=== PATIENT | female | born 1975 | race Caucasian/White ===

== ENCOUNTER 2017-02-23 22:17 | Emergency (ER) | payer BC ==
[2017-02-23] MEDS ORDERED: ONDANSETRON ODT 8 MG TAB SL ONE (22:39)
[2017-02-23] MEDS ORDERED: HYDROmorphone HCL INJ 2 MG/ML VIAL IV ONE (22:39)
[2017-02-23] MEDS ORDERED: SODIUM CHLORIDE 0.9% 1000ML 1,000 ML IVS ONE (22:39)
[2017-02-23] MEDS ORDERED: LIDOCAINE VIS-MYLANTA 30 ML UD PO ONE (22:39)
--- NOTE | 2017-02-23 23:05 | RAD ---
EXAM DESCRIPTION: Abdomen Series CLINICAL HISTORY: 41 years Female ,n/v/left abd and flank pain COMPARISON: None. TECHNIQUE: Frontal view chest x-ray and two views of the abdomen. FINDINGS: Heart size is within normal limits. Right lung appears clear. There is some blunting of the left costo phrenic angle which may reflect small amount of fluid. No free intraperitoneal air. No bowel obstruction. Clips in the gallbladder fossa. Calcifications in both aspects of the pelvis likely phleboliths. There is a linear area of calcification in the right pelvis measuring 1.4 cm. This may represent vascular calcification the possibility of an elongated distal ureteral stone is not excluded. IMPRESSION: Question small left pleural effusion Elongated calcification in the right pelvis. Question vascular calcification. Ureteral calculus not entirely excluded Electronically signed by: Ivette Gabriel 02/23/2017 11:04 PM CDT
[2017-02-24] MEDS ORDERED: ONDANSETRON ODT 8 MG TAB SL ONE (00:35)
[2017-02-24] MEDS ORDERED: SUCRALFATE 1 GM/10 ML 1 GM UD PO ONE (00:35)
[2017-02-24] MEDS ORDERED: SODIUM CHLORIDE 0.9% 1000ML 1,000 ML IVS ONE (00:35)
--- NOTE | 2017-02-24 00:47 | ED.PDOC ---
History of Present Illness - General Chief Complaint: Abdominal Pain Stated Complaint: Left flank and abdominal pain Time Seen by Provider: 02/23/17 22:32 Source: patient Exam Limitations: no limitations - History of Present Illness Initial Comments: the patient is a 41-year-old female presenting to the emergency room secondary to approximately 4 hours of left flank pain that caused nausea and vomiting and then epigastric pains. She has been having a sensation of needing to urinate but unable to do so. No pain with urination. No fever. Pain onset was rapid. No blood or bile in the vomitus. She does feel like she is dehydrated. No syncope or near-syncope. No chest pain.the flank pain was severe. The patient is currently on her period. Timing/Duration: 4-6 hours Severity: severe Improving Factors: nothing Worsening Factors: nothing Associated Symptoms: malaise, nausea/vomiting Allergies/Adverse Reactions: Allergies NO KNOWN ALLERGY Allergy (Verified 02/23/17 22:27) Home Medications: Ambulatory Orders Mvimnpievnudy-Pfzx-Wwlquhkcck [Fioricet] 1 ea PO Q8H PRN #21 tab 02/24/17 Famotidine 20 mg PO DAILY #30 tab 02/24/17 Ondansetron [Zofran Odt] 4 mg PO Q4H PRN #10 tab 02/24/17 Review of Systems - Review of Systems Constitutional: States: malaise EENTM: States: no symptoms reported Respiratory: States: no symptoms reported Cardiology: States: no symptoms reported Gastrointestinal/Abdominal: States: nausea, vomiting Genitourinary: States: pain Musculoskeletal: States: back pain Skin: States: no symptoms reported Neurological: States: no symptoms reported Endocrine: States: no symptoms reported All other Systems: No Change from Baseline Past Medical History (General) - Patient Medical History Hx Seizures: No Hx Stroke: No Hx Dementia: No Hx Asthma: No Hx of COPD: No Hx Cardiac Disorders: No Hx Congestive Heart Failure: No Hx Pacemaker: No Hx Hypertension: No Hx Thyroid Disease: No Hx Diabetes: No Hx Gastroesophageal Reflux: No Hx Renal Disease: No Hx Cancer: No Hx of HIV: No Hx Hepatitis C: No Hx MRSA: No Surgical History: cholecystectomy - Vaccination History Hx Tetanus, Diphtheria Vaccination: No Hx Influenza Vaccination: No Hx Pneumococcal Vaccination: No Immunizations Up to Date: Yes - Social History Hx Tobacco Use: No Hx Alcohol Use: No Hx Substance Use: No - Female History Patient is a Female of Child Bearing Age (10 -59 yrs old): Yes Patient : No Family Medical History - Family History Mother Living Status: Still Living Hx Family Hypertension: Yes Hx Cardiac Disease: Yes - [place] Father Living Status: Still Living Hx Family Hypertension: Yes Hx Family Diabetes: Yes Physical Exam - Physical Exam General Appearance: Alert, Obvious distress Eye Exam: bilateral normal Ears, Nose, Throat: hearing grossly normal, normal ENT inspection, normal pharynx Neck: non-tender, full range of motion, supple Respiratory: chest non-tender, lungs clear, normal breath sounds, no respiratory distress, no accessory muscle use Cardiovascular/Chest: normal peripheral pulses, regular rate, rhythm, no edema Peripheral Pulses: radial,right: 2+, radial,left: 2+, dorsalis pedis,right: 2+, dorsalis pedis,left: 2+ Gastrointestinal/Abdominal: other - epigastric and lower abdominal discomfort palpation. No true rebound or peritoneal signs. Rectal Exam: deferred Back Exam: no vertebral tenderness, CVA tenderness (L) Extremity: normal range of motion, non-tender, normal inspection, no pedal edema , normal capillary refill Neurologic: whizzer II-XII nml as tested, no motor/sensory deficits, alert, normal mood/affect, oriented x 3 Skin Exam: normal color Comments: Vital Signs - 24 hr 02/23/17 02/23/17 02/23/17 22:26 22:28 23:17 Temperature 97.2 F L Pulse Rate [ 84 84 65 Right Radial] Respiratory 18 18 18 Rate Blood Pressure 131/75 124/72 [Right Arm] O2 Sat by Pulse 95 97 Oximetry 02/24/17 00:00 Temperature Pulse Rate [ 63 Right Radial] Respiratory 16 Rate Blood Pressure 116/71 [Right Arm] O2 Sat by Pulse 97 Oximetry Progress - Progress Progress: 02/24/17 00:47 the patient is a 41-year-old female presenting with left flank and epigastric pain after vomiting. The patient's pain has essentially resolved after some IV fluids and pain medications. She did receive antiemetics. She has not thrown up anymore. She is feeling better. It is likely that the source of the initial flank pain is a kidney stone. She did have some hematuria however she is currently on her period. Kidney function appears good. The patient will receive a total of 2 L of IV fluids. She needs to maintain a bland diet for the next few days. She needs to keep herself well- hydrated. She'll be written for Fioricet for as needed use for pain control. Additionally she'll be written for Zofran for as needed use for nausea and vomiting. I would recommend that she take a Pepcid daily for the next few weeks. ER warnings were given. She should follow up with her primary care doctor early next week. - Results/Orders Results/Orders: Laboratory Tests 02/23/17 02/23/17 02/23/17 22:40 22:40 22:40 WBC 9.1 RBC 5.00 Hgb 13.4 Hct 40.8 MCV 81.6 MCH 26.8 L MCHC 32.8 L RDW 13.7 Plt Count 374 MPV 6.9 L Absolute Neuts (auto) 6.90 H Absolute Lymphs (auto) 1.50 Absolute Monos (auto) 0.50 Absolute Eos (auto) 0.10 Absolute Basos (auto) 0.00 Neutrophils % 75.9 Lymphocytes % 16.6 L Monocytes % 5.5 Eosinophils % 1.5 Basophils % 0.5 Sodium 139 Potassium 3.9 Chloride 103 Carbon Dioxide 25 Anion Gap 14.9 BUN 14 Creatinine 0.83 BUN/Creatinine Ratio 16.9 Random Glucose 152 H Serum Osmolality 281.0 Calcium 9.1 Total Bilirubin 0.3 AST 38 ALT 32 Alkaline Phosphatase 84 Creatine Kinase 848 H* CK-MB (CK-2) 1.2 CK-MB (CK-2) % Not Reportable Troponin I < 0.02 Serum Total Protein 7.5 Albumin 4.2 Globulin 3.3 Albumin/Globulin Ratio 1.3 Amylase 55 Lipase 29 Serum HCG, Qual Negative Urine Color Urine Appearance Urine pH Ur Specific [place] Urine Protein Urine Glucose (UA) Urine Ketones Urine Blood Urine Nitrite Urine Bilirubin Urine Urobilinogen Ur Leukocyte Esterase Urine RBC Urine WBC Ur Epithelial Cells Urine Bacteria Hyaline Casts Urine Mucus 02/23/17 23:50 WBC RBC Hgb Hct MCV MCH MCHC RDW Plt Count MPV Absolute Neuts (auto) Absolute Lymphs (auto) Absolute Monos (auto) Absolute Eos (auto) Absolute Basos (auto) Neutrophils % Lymphocytes % Monocytes % Eosinophils % Basophils % Sodium Potassium Chloride Carbon Dioxide Anion Gap BUN Creatinine BUN/Creatinine Ratio Random Glucose Serum Osmolality Calcium Total Bilirubin AST ALT Alkaline Phosphatase Creatine Kinase CK-MB (CK-2) CK-MB (CK-2) % Troponin I Serum Total Protein Albumin Globulin Albumin/Globulin Ratio Amylase Lipase Serum HCG, Qual Urine Color Yellow Urine Appearance Sl cloudy Urine pH 6.0 Ur Specific [place] 1.025 Urine Protein 100 H Urine Glucose (UA) Negative Urine Ketones 15 H Urine Blood Large H Urine Nitrite Negative Urine Bilirubin Small H Urine Urobilinogen 1.0 Ur Leukocyte Esterase Negative Urine RBC >50 H Urine WBC 1-3 Ur Epithelial Cells 0-1 Urine Bacteria 1+ Hyaline Casts 0-1 Urine Mucus Moderate abdominal series shows no acute pathology. Departure - Departure Clinical Impression: Back pain Qualifiers: Back pain location: back pain in other location Chronicity: acute Qualified Code(s): M54.9 - Dorsalgia, unspecified Abdominal pain Qualifiers: Abdominal location: epigastric Qualified Code(s): R10.13 - Epigastric pain Disposition: Discharge to Home or Self Care Condition: Fair Departure Forms: ED Discharge - Pt. Copy, Patient Portal Self Enrollment Instructions: DI for Abdominal Pain-Adult Diet: bland diet Activity: increase activity as tolerated Prescriptions: Evnnfawozbdcq-Yxvd-Vjelvcqequ [Fioricet] 1 ea PO Q8H PRN #21 tab PRN Reason: Pain Famotidine 20 mg PO DAILY #30 tab Ondansetron [Zofran Odt] 4 mg PO Q4H PRN #10 tab PRN Reason: Vomiting Home Medications: Ambulatory Orders Zkookqmkmnrsa-Iutc-Jslxblwmqb [Fioricet] 1 ea PO Q8H PRN #21 tab 02/24/17 Famotidine 20 mg PO DAILY #30 tab 02/24/17 Ondansetron [Zofran Odt] 4 mg PO Q4H PRN #10 tab 02/24/17 Additional Instructions: the patient is a 41-year-old female presenting with left flank and epigastric pain after vomiting. The patient's pain has essentially resolved after some IV fluids and pain medications. She did receive antiemetics. She has not thrown up anymore. She is feeling better. It is likely that the source of the initial flank pain is a kidney stone. She did have some hematuria however she is currently on her period. Kidney function appears good. The patient will receive a total of 2 L of IV fluids. She needs to maintain a bland diet for the next few days. She needs to keep herself well- hydrated. She'll be written for Fioricet for as needed use for pain control. Additionally she'll be written for Zofran for as needed use for nausea and vomiting. I would recommend that she take a Pepcid daily for the next few weeks. ER warnings were given. She should follow up with her primary care doctor early next week.
[2017-02-24 01:30] VITALS: BP 100/52; TEMP 98.2; O2SAT 98
== END 2017-02-24 01:30 | disposition home or self-care (01) ==
LOC: ER 22:17
DX: R10.13 Epigastric pain (principal); M54.9 Dorsalgia, unspecified; Z82.49 Family history of ischemic heart disease and other diseases of the circulatory system
CPT/HCPCS: 36415; 74020; 80053; 81001; 82150; 82550; 82553; 83690; 84484; 84703; 85025; J1170; J7030

== ENCOUNTER 2017-06-08 00:44 | Emergency (ER) | payer BC ==
[2017-06-08] MEDS ORDERED: LACTATED RINGERS 1,000 ML IVS ONE (01:35)
[2017-06-08] MEDS ORDERED: KETOROLAC TROMETHAMINE INJ 30 MG/ML VIAL IV ONE (01:42)
[2017-06-08] MEDS ORDERED: MORPHINE SULFATE INJ 10 MG/ML VIAL IV ONE (01:46)
[2017-06-08] MEDS ORDERED: TAMSULOSIN 0.4 MG CAP PO ONE (01:47)
--- NOTE | 2017-06-08 02:28 | ED.PDOC ---
History of Present Illness - General Chief Complaint: General Stated Complaint: flank pain Time Seen by Provider: 06/08/17 01:30 Source: patient Exam Limitations: no limitations - History of Present Illness Initial Comments: Candy Saba 41 y/o female stated that she had stabbing bilateral flank pain left >right for the last 2 days.Had history of nephrolithiasis in the past.No fever nausea/vomiting dysuria Timing/Duration: other - see hpi Severity: moderate Improving Factors: nothing Worsening Factors: nothing Associated Symptoms: other - see hpi Allergies/Adverse Reactions: Allergies NO KNOWN ALLERGY Allergy (Verified 02/23/17 22:27) Home Medications: Ambulatory Orders Yqduhzlfxuofe-Itmj-Dnjydlckdi [Fioricet] 1 ea PO Q8H PRN #21 tab 02/24/17 Famotidine 20 mg PO DAILY #30 tab 02/24/17 Ondansetron [Zofran Odt] 4 mg PO Q4H PRN #10 tab 02/24/17 Review of Systems - Review of Systems Constitutional: States: no symptoms reported EENTM: States: no symptoms reported Respiratory: States: no symptoms reported Cardiology: States: no symptoms reported Gastrointestinal/Abdominal: States: no symptoms reported Genitourinary: States: see HPI Musculoskeletal: States: no symptoms reported Skin: States: no symptoms reported Neurological: States: no symptoms reported Past Medical History (General) - Patient Medical History Hx Seizures: No Hx Stroke: No Hx Dementia: No Hx Asthma: No Hx of COPD: No Hx Cardiac Disorders: No Hx Congestive Heart Failure: No Hx Pacemaker: No Hx Hypertension: No Hx Thyroid Disease: No Hx Diabetes: No Hx Gastroesophageal Reflux: Yes Hx Renal Disease: Yes - Kidney stones Hx Cancer: No Hx of HIV: No Hx Hepatitis C: No Hx MRSA: No Surgical History: cholecystectomy - Vaccination History Hx Tetanus, Diphtheria Vaccination: No Hx Influenza Vaccination: No Hx Pneumococcal Vaccination: No - Social History Hx Tobacco Use: No Hx Alcohol Use: No Hx Substance Use: No Hx Substance Use Treatment: No Hx Depression: No Hx Physical Abuse: No Hx Emotional Abuse: No Hx Suspected Abuse: No - Activities of Daily Living Patient Lives Alone: No - Female History Patient is a Female of Child Bearing Age (10 -59 yrs old): Yes Hx Last Menstrual Period: 05/23/17 Patient : No - Triage Comment ED Triage Comment: Pt comes c/o Hx of Kidney stones x 2 and thinks she has another one---onset x 3 days---pt states, " I know to drink water, but I have not been and pain got worse tonight." Pain is 9 states. Pt states unable to urinate to give UA. C/O Lt flank pain. Family Medical History - Family History Mother Living Status: Still Living Hx Family Hypertension: Yes Hx Cardiac Disease: Yes - [place] Father Living Status: Still Living Hx Family Hypertension: Yes Hx Family Diabetes: Yes Physical Exam - Physical Exam General Appearance: Alert, No apparent distress Eye Exam: bilateral normal Ears, Nose, Throat: hearing grossly normal, normal ENT inspection Neck: non-tender, supple Respiratory: lungs clear, normal breath sounds Cardiovascular/Chest: normal peripheral pulses, regular rate, rhythm, no murmur Peripheral Pulses: radial,right: 2+, radial,left: 2+ Gastrointestinal/Abdominal: non tender, soft, no organomegaly Back Exam: normal inspection, no vertebral tenderness, CVA tenderness (L) Extremity: no pedal edema, no calf tenderness Neurologic: alert, oriented x 3 Skin Exam: normal color, warm/dry Lymphatic: no adenopathy Progress - Progress Progress: 06/08/17 02:31 Vital Signs 06/08/17 01:14 Temperature 98.3 F Pulse Rate [Lt 94 H arm] Respiratory 20 Rate Blood Pressure 130/83 [Lt arm] O2 Sat by Pulse 95 Oximetry 06/08/17 03:30 Laboratory Tests 06/08/17 06/08/17 06/08/17 01:50 01:50 02:25 WBC 7.9 RBC 4.75 Hgb 12.9 Hct 38.8 MCV 81.6 MCH 27.0 MCHC 33.2 RDW 14.1 Plt Count 324 MPV 7.1 L Absolute Neuts (auto) 4.60 Absolute Lymphs (auto) 2.40 Absolute Monos (auto) 0.70 Absolute Eos (auto) 0.20 Absolute Basos (auto) 0.10 Neutrophils % 58.5 Lymphocytes % 30.0 Monocytes % 8.6 Eosinophils % 2.2 Basophils % 0.7 Sodium Potassium Chloride Carbon Dioxide Anion Gap BUN Creatinine BUN/Creatinine Ratio Random Glucose Serum Osmolality Calcium Total Bilirubin AST ALT Alkaline Phosphatase Serum Total Protein Albumin Globulin Albumin/Globulin Ratio Urine HCG, Qual Negative Urine Opiates Screen Positive H Urine Barbiturates Negative Ur Phencyclidine Scrn Negative U Amphetamin/Meth Scrn Negative U Benzodiazepines Scrn Negative U Cocaine Metab Screen Negative U Cannabinoids Screen Negative 06/08/17 02:25 WBC RBC Hgb Hct MCV MCH MCHC RDW Plt Count MPV Absolute Neuts (auto) Absolute Lymphs (auto) Absolute Monos (auto) Absolute Eos (auto) Absolute Basos (auto) Neutrophils % Lymphocytes % Monocytes % Eosinophils % Basophils % Sodium 137 Potassium 3.8 Chloride 105 Carbon Dioxide 26 Anion Gap 9.8 L BUN 11 Creatinine 0.73 BUN/Creatinine Ratio 15.1 Random Glucose 146 H Serum Osmolality 275.9 Calcium 8.9 Total Bilirubin 0.2 AST 20 ALT 27 Alkaline Phosphatase 87 Serum Total Protein 7.3 Albumin 4.1 Globulin 3.2 Albumin/Globulin Ratio 1.3 Urine HCG, Qual Urine Opiates Screen Urine Barbiturates Ur Phencyclidine Scrn U Amphetamin/Meth Scrn U Benzodiazepines Scrn U Cocaine Metab Screen U Cannabinoids Screen - EKG/XRAY/CT CT Ordered: Yes - abd/p-2mm left ureteral stone UVJ no renal stone bilaterally Departure - Departure Clinical Impression: Left flank pain, Calculus of distal left ureter Time of Disposition: 03:33 Disposition: Discharge to Home or Self Care Condition: Good Departure Forms: ED Discharge - Pt. Copy, Patient Portal Self Enrollment Instructions: DI for Kidney Stones, Kidney Stones -- Adult Diet: other - keep well hydrated Home Medications: Ambulatory Orders Yteypbwbmeabg-Mdns-Frzpgykaft [Fioricet] 1 ea PO Q8H PRN #21 tab 02/24/17 Famotidine 20 mg PO DAILY #30 tab 02/24/17 Ondansetron [Zofran Odt] 4 mg PO Q4H PRN #10 tab 02/24/17 Additional Instructions: Follow up with [phone] 06/10/2017 for urology referral
--- NOTE | 2017-06-08 03:05 | CT ---
EXAM DESCRIPTION: Abdoment/Pelvis w/o Contrast CLINICAL HISTORY: 41 years Female, flank pain COMPARISON: Abdomen radiograph 02/23/2017 TECHNIQUE: Contiguous axial CT images of the abdomen and pelvis were acquired without administration of intravenous contrast. Coronal and sagittal reformatted images are provided. This exam was performed according to our departmental dose-optimization program which includes use of Automated Exposure Control, adjustment of the mA and/or kV according to patient size and/or use of iterative reconstruction technique. FINDINGS: Chest base: Unremarkable. Liver: Unremarkable. Gallbladder: Surgically absent Spleen: Unremarkable. Adrenals: Unremarkable. Pancreas: Unremarkable. Right Kidney: No renal stones or hydronephrosis. Left Kidney: There is a tiny 2 mm stone within the left UVJ. There is no hydronephrosis or hydroureter. There are no renal stones. Aorta and branch vessels: Mild calcific atherosclerosis of the aortoiliac vessels. Lymph nodes: No lymphadenopathy. Bowels: No obstruction. Colon: Scattered colonic diverticula. Appendix: Normal. Peritoneum: No free air or free fluid. Pelvic organs: Unremarkable. Bladder: Nondistended, limiting evaluation. Bones and soft tissues: No acute osseous or soft tissue abnormalities. Chronic bilateral pars defects at L5. There is minimal anterolisthesis L5 on S1. IMPRESSION: 2 mm left UVJ stone without hydroureter or hydronephrosis. Scattered colonic diverticula. Electronically signed by: Richar Maza MD 06/08/2017 3:04 AM FINISHING MANAGER
[2017-06-08] MEDS ORDERED: HYDROcodone 10MG/APAP 325MG 1 EA TAB PO ONE (03:29)
[2017-06-08] MEDS ORDERED: HYDROCOD/APAP 7.5/325 (ER DISP) #3 TAB PO ONE (03:31)
[2017-06-08] MEDS ORDERED: ONDANSETRON ODT 8 MG TAB SL ONE (04:00)
[2017-06-08] MEDS ORDERED: ONDANSETRON ODT (ER DISP) 8 MG TAB PO ONE (04:00)
[2017-06-08 04:56] VITALS: BP 117/74; TEMP 98; O2SAT 94
== END 2017-06-08 04:45 | disposition home or self-care (01) ==
LOC: ER 00:44
DX: N20.1 Calculus of ureter (principal); Z87.442 Personal history of urinary calculi; K21.9 Gastro-esophageal reflux disease without esophagitis
CPT/HCPCS: 36415; 74176; 80053; 80307; 81001; 81025; 85025; J1885; J2270; J7120